=== PATIENT | male | born 1970 | race Caucasian/White ===

== ENCOUNTER 2020-01-14 18:31 | Emergency (ER) | payer BC, SELFPAY ==
--- NOTE | 2020-01-14 18:54 | ED.GENADULT ---
HPI - General Adult General Chief complaint: Skin/Abscess/Foreign Body Stated complaint: Sore in nostril Time Seen by Provider: 01/14/20 19:01 Source: patient Mode of arrival: ambulatory Limitations: no limitations History of Present Illness HPI narrative: 49-year-old male patient presents to the [facility] with complaints of a sore under the nose above the upper lip for the past 2 days. Patient is a diabetic. Patient states it is very painful to the touch. Patient denies any fevers. Patient denies any drainage from the wound. Related Data Home Medications Medication Instructions Recorded Confirmed acetaminophen-codeine tablet 01/14/20 carvedilol 01/14/20 clopidogrel 01/14/20 dulaglutide [Trulicity] mg SUBCUT 01/14/20 empagliflozin [Jardiance] mg 01/14/20 ezetimibe mg 01/14/20 fenofibrate micronized mg 01/14/20 fenofibrate micronized mg 01/14/20 flu vac [id number] 36mos up(PF) IM 01/14/20 [Afluria Qd (3yr up)(PF)] insulin glargine U-300 conc SUBCUT 01/14/20 [Toujeo SoloStar U-300 Insulin] insulin lispro [Humalog KwikPen unit SUBCUT 01/14/20 Insulin] lisinopril 01/14/20 metformin mg PO 01/14/20 pen needle, diabetic [BD 01/14/20 01/14/20 Ultra-Fine Christine Pen Needle] rosuvastatin mg 01/14/20 varicella-zoster [id number] (PF) IM 01/14/20 [Shingrix (PF)] Allergies Allergy/AdvReac Type Severity Reaction Status Date / Time No Known Allergies Allergy Verified 01/14/20 19:00 Review of Systems Review of Systems: Narrative: CONSTITUTIONAL: Denies fever, chills, or sweats. EYES: Denies visual changes, redness, or discharge. ENT: Denies rhinorrhea, congestion, sore throat, or otalgia. CARDIOVASCULAR: Denies chest pain, palpitations, or edema. RESPIRATORY: Denies cough or dyspnea. GASTROINTESTINAL: Denies abdominal pain, nausea, vomiting, or diarrhea. GENITOURINARY: Denies dysuria or hematuria. SKIN: Denies rash or itching. Positive wound to the space between the upper lip and the nose x2 days MUSCULOSKELETAL: Denies back pain, joint pain, or myalgia. NEUROLOGIC: Denies headache, numbness, or weakness. PSYCHIATRIC: Denies anxiety or depression. PMFSH Comments At the time of my signature I agree with nursing past medical history, surgical, social, and family history. There is no relevant family history pertinent to the presenting complaint. Exam Narrative: Exam Narrative: GENERAL: Well-appearing, well-nourished, and in no acute distress. HEAD: Normocephalic, atraumatic. EYES: PERRLA and EOMI. ENT: Nares clear, no rhinorrhea or epistaxis. Mucous membranes moist. NECK: Supple. No lymphadenopathy CHEST: Clear to auscultation. No respiratory distress. HEART: Regular rate and rhythm. No murmur heard. Normal peripheral pulses. ABDOMEN: Soft, nontender, nondistended, normal active bowel sounds. EXTREMITIES: Normal range of motion. No edema. SKIN: Warm, dry, no rash. Patient has what appears to be an abscess with a lot of pressure noted to the skin in between the nose and the upper lip. It is very tender to the touch and feels like it has been indurated area. NEURO: No focal deficits. Alert and oriented x3. Course Vital Signs Vital signs: Vital Signs Temperature 37.0 C 01/14/20 18:56 Pulse Rate 90 01/14/20 18:56 Respiratory Rate 16 01/14/20 18:56 Blood Pressure 157/91 H 01/14/20 18:56 Pulse Oximetry 99 01/14/20 18:56 Temperature 37.0 C 01/14/20 18:56 Pulse Rate 90 01/14/20 18:56 Respiratory Rate 16 01/14/20 18:56 Blood Pressure 157/91 H 01/14/20 18:56 Pulse Oximetry 99 01/14/20 18:56 Vital signs reviewed. The patient has been informed that they may have pre-hypertension or Hypertension based on a BP reading in the department. I recommend that the patient call the primary care provider listed on their discharge instructions or a physician of their choice this week to arrange follow up for further evaluation of possible pre-hypertension or Hyperte
[2020-01-14 18:56] VITALS: BP 157/91; PULSE 90; RESP 16; TEMP 37; O2SAT 99
== END 2020-01-14 19:32 | disposition home or self-care (01) ==
PROVIDERS: Emergency Provider Nurse Practitioner Family
DX: L02.01 Cutaneous abscess of face (principal); E11.9 Type 2 diabetes mellitus without complications; I10 Essential (primary) hypertension; Z95.1 Presence of aortocoronary bypass graft; Z95.5 Presence of coronary angioplasty implant and graft; Z79.4 Long term (current) use of insulin
CPT/HCPCS: 10060; 99213; G0463

== ENCOUNTER 2021-11-05 00:19 | Day surgery (SDC) | payer OTHER, SELFPAY ==
[2021-10-30 13:14] VITALS: BMI 34.7
[2021-11-05 08:44] VITALS: BP 124/74; PULSE 92; RESP 18; TEMP 36.3; O2SAT 99; BMI 34.0
--- NOTE | 2021-11-05 08:48 | WPDGICN ---
Assessment and Plan Assessment and plan (1) Encounter for screening colonoscopy: Code(s): Z12.11 - Encounter for screening for malignant neoplasm of colon Status: Acute Assessment and Plan: Patient presents today for screening colonoscopy. He appears to be at average risk for colon polyps. GI Consult Note Consult date/time: 11/05/21 08:48 HPI: Curtis Henry is a 51 year old male Presents for neoplasia screening. Patient's current weight appetite and bowel movements are normal. He denies abdominal pain. He has had no bleeding. His family history is noncontributory. Past medical history is significant for atherosclerotic heart disease with history of coronary artery bypass grafting and stents. Review of Systems Review of Systems: All systems reviewed & are unremarkable except as noted in HPI and below PMFSH Past Medical History Medical History (Updated 11/05/21 @ 08:49 by Sree Gaston MD) CAD (coronary artery disease) s/p CABG 2006 s/p stent 2008 Diabetes mellitus HTN (hypertension) Social History Social History (Updated 10/14/21 @ 11:43 by Andrew Howard APRN) Smoking packs per day: 1 Smoking cigarettes per day: 20.0 Years smoked: 13 Smoking pack-years: 13.00 Smoking status: Former smoker Tobacco type: cigarettes Smoking end date: 09/21/97 Alcohol intake: current Alcohol use details: 1 drink/month Substance use: never Substance use type: does not use Living arrangements: with family 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 Spiritual care concerns: No Meds Home Medications and Allergies Home Medications Medication Instructions Recorded Confirmed Type carvedilol 12.5 mg PO DAILY 01/14/20 10/30/21 History clopidogrel 75 mg PO DAILY 01/14/20 10/30/21 History dulaglutide [Trulicity] 1.5 mg SUBCUT WEEKLY 01/14/20 10/30/21 History empagliflozin [Jardiance] 25 mg PO DAILY 01/14/20 10/30/21 History ezetimibe 10 mg PO DAILY 01/14/20 10/30/21 History fenofibrate micronized 134 mg PO DAILY 01/14/20 10/30/21 History insulin glargine U-300 conc SUBCUT 01/14/20 10/14/21 History [[place] SoloStar U-300 Insulin] insulin lispro [Humalog KwikPen unit SUBCUT 01/14/20 10/14/21 History Insulin] lisinopril 5 mg PO DAILY 01/14/20 10/30/21 History metformin 500 mg PO BID 01/14/20 10/30/21 History pen needle, diabetic [BD 01/14/20 10/14/21 History Ultra-Fine Christine Pen Needle] rosuvastatin 40 mg PO DAILY 01/14/20 10/30/21 History aspirin 81 mg tablet,delayed 81 mg PO DAILY 10/14/21 10/30/21 History release cholecalciferol (vitamin D3) 25 25 mcg PO DAILY 10/14/21 10/30/21 History mcg (1,000 unit) capsule Allergies Allergy/AdvReac Type Severity Reaction Status Date / Time No Known Allergies Allergy Verified 11/05/21 08:42 Vital Signs Vital Signs - 24 hr 11/05/21 08:44 Temperature 97.4 F L Pulse Rate 92 Respiratory Rate 18 Blood Pressure 124/74 Pulse Oximetry 99 Exam Narrative: Physical exam reveals patient to be alert. Vital signs stable. HEENT exam is unremarkable. Patient is anicteric. Lungs are clear to auscultation and percussion. Heart is without murmur or extra sounds. Abdominal exam bowel sounds are present soft nontender with no organomegaly. Digital external rectal exam is normal.
[2021-11-05] MEDS: LACTATED RINGERS 1,000 ML 150 ML IV CONT (08:58)
--- NOTE | 2021-11-05 09:15 | WPDANESEPPF ---
Anes - Initial Pre Proc Eval Procedure: Operation Date: 11/05/21 10:00 Proposed Procedures p Screening Colonoscopy - Sree Gaston MD Date/Time: 11/05/21 09:15 Surgeon: Sree Gaston MD Pre Op Diagnosis: neoplasm screening Patient Data Age: 51 Gender: M Height: 1.78 m Weight: 107.7 kg Last Vital Signs Temp 97.4 F L 11/05/21 08:44 Pulse 92 11/05/21 08:44 Resp 18 11/05/21 08:44 BP 124/74 11/05/21 08:44 Pulse Ox 99 11/05/21 08:44 Allergies Allergy/AdvReac Type Severity Reaction Status Date / Time No Known Allergies Allergy Verified 11/05/21 08:42 Home Medications Medication Instructions Recorded Confirmed Type carvedilol 12.5 mg PO DAILY 01/14/20 10/30/21 History clopidogrel 75 mg PO DAILY 01/14/20 10/30/21 History dulaglutide [Trulicity] 1.5 mg SUBCUT WEEKLY 01/14/20 10/30/21 History empagliflozin [Jardiance] 25 mg PO DAILY 01/14/20 10/30/21 History ezetimibe 10 mg PO DAILY 01/14/20 10/30/21 History fenofibrate micronized 134 mg PO DAILY 01/14/20 10/30/21 History insulin glargine U-300 conc SUBCUT 01/14/20 10/14/21 History [Toujeo SoloStar U-300 Insulin] insulin lispro [Humalog KwikPen unit SUBCUT 01/14/20 10/14/21 History Insulin] lisinopril 5 mg PO DAILY 01/14/20 10/30/21 History metformin 500 mg PO BID 01/14/20 10/30/21 History pen needle, diabetic [BD 01/14/20 10/14/21 History Ultra-Fine Christine Pen Needle] rosuvastatin 40 mg PO DAILY 01/14/20 10/30/21 History aspirin 81 mg tablet,delayed 81 mg PO DAILY 10/14/21 10/30/21 History release cholecalciferol (vitamin D3) 25 25 mcg PO DAILY 10/14/21 10/30/21 History mcg (1,000 unit) capsule Patient hx anesthesia problems: none Family hx anesthesia problems: none Results Review: All pre-operative results and documents have been reviewed as part of the pre-operative evaluation. [facility] Past Medical History Medical History (Updated 11/05/21 @ 08:49 by Sree Gaston MD) CAD (coronary artery disease) s/p CABG 2006 s/p stent 2008 Diabetes mellitus HTN (hypertension) Social History Social History (Updated 10/14/21 @ 11:43 by Andrew Howard, ISMA) Smoking packs per day: 1 Smoking cigarettes per day: 20.0 Years smoked: 13 Smoking pack-years: 13.00 Smoking status: Former smoker Tobacco type: cigarettes Smoking end date: 09/21/97 Alcohol intake: current Alcohol use details: 1 drink/month Substance use: never Substance use type: does not use Living arrangements: with family 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 Informed Consent: The patient's anesthetic plan and its attendant risks and benefits were discussed with the patient/family/POA. Questions were solicited and answers provided to the satisfaction of the patient/family/POA.
[2021-11-05 09:35] LABS: Glucose Point of Care 189 mg/dl (65-105)
[2021-11-05 10:10] VITALS: BP 105/69; PULSE 79; RESP 17; O2SAT 97
--- NOTE | 2021-11-05 10:18 | SUR.PHASEII ---
RESTART PLAVIX 11/[address] COOPER ORDERS. DOCUMENTATION GIVEN TO PATIENT, PATIENT AWARE.
[2021-11-05 10:20] VITALS: BP 109/73; PULSE 83; RESP 24; O2SAT 98
[2021-11-05 10:27] LABS: Glucose Point of Care 149 mg/dl (65-105)
[2021-11-05 10:30] VITALS: BP 123/85; PULSE 77; RESP 26; O2SAT 100
--- NOTE | 2021-11-08 10:21 | SUR.OPER ---
Specimen order for ascending colon polyp was incorrect. Documentation changed to descending colon polyp.
== END 2021-11-05 10:35 | disposition home or self-care (01) ==
PROVIDERS: PCP Internal Medicine; Visit Provider Internal Medicine Gastroenterology
PROC: 0DJD8ZZ Inspection of Lower Intestinal Tract, Via Natural or Artificial Opening Endoscopic (ICD-10-PCS; CPT 45378; principal; 2021-11-05 10:00)
DX: Z12.11 Encounter for screening for malignant neoplasm of colon (principal); D12.4 Benign neoplasm of descending colon; Z79.82 Long term (current) use of aspirin; Z79.4 Long term (current) use of insulin; Z79.51 Long term (current) use of inhaled steroids; I25.10 Atherosclerotic heart disease of native coronary artery without angina pectoris; Z95.1 Presence of aortocoronary bypass graft; E11.9 Type 2 diabetes mellitus without complications; I10 Essential (primary) hypertension; Z87.891 Personal history of nicotine dependence; E66.9 Obesity, unspecified; Z68.34 Body mass index [BMI] 34.0-34.9, adult
CPT/HCPCS: 45385; 82948; 88305; J2704; J7120

== ENCOUNTER 2024-11-04 13:19 | Outpatient (CLI) | payer BC, SELFPAY ==
--- NOTE | ~2024-11-04 | US_ITS ---
EXAMINATION: US carotid duplex BI DATE: 11/04/2024 13:39 INDICATION: Carotid artery stenosis. TECHNIQUE: Grayscale, color Doppler, and pulsed Doppler images of the cervical carotid arteries were obtained. The degree of vessel stenosis is placed in one of the following categories: normal, <50%, 5 0-69%, >=70% but less than near-occlusion, near-occlusion, or total occlusion. Note that percent sten osis relative to normal distal artery lumen diameter is indirectly measured from velocity measurement s as described by Mukesh, et al. Radiology 2003; 229:[id number]. COMPARISON: None. FINDINGS: RIGHT: The right common carotid artery (CCA) peak systolic velocity (PSV) is 93 cm/s. The right internal car otid artery (ICA) PSV is 57 cm/s. The right ICA end-diastolic velocity (EDV) is 19 cm/s. The right IC A/CCA PSV ratio is 0.6. Grayscale and color Doppler images yield an estimate of <50% diameter reducti on from plaque in the ICA. There is antegrade flow in the right vertebral artery. LEFT: The left CCA PSV is 104 cm/s. The left ICA PSV is 59 cm/s. The left ICA EDV is 20 cm/s. The left ICA/ CCA PSV ratio is 0.6. Grayscale and color Doppler images yield an estimate of <50% diameter reduction from plaque in the ICA. There is antegrade flow in the left vertebral artery. IMPRESSION: 1. <50% stenosis in the right internal carotid artery. 2. <50% stenosis in the left internal carotid artery. Reviewed, dictated and finalized at location A. ENING NURSE
== END 2024-11-04 13:20 | disposition home or self-care (01) ==
LOC: GOSHIMG 13:21
PROVIDERS: PCP Internal Medicine; Visit Provider Internal Medicine
DX: I65.23 Occlusion and stenosis of bilateral carotid arteries (principal)
CPT/HCPCS: 93880

== ENCOUNTER 2025-07-12 08:09 | Outpatient (CLI) | payer OTHER, BC, SELFPAY ==
--- NOTE | ~2025-07-12 | US_ITS ---
US abdomen limited INDICATION: Fatty liver PROCEDURE: Realtime right upper abdominal ultrasound. COMPARISON: No prior studies for comparison. FINDINGS: The pancreas is normal without focal mass or pancreatic ductal dilation. Liver echotexture is increased, consistent with fatty infiltration. Liver is enlarged measuring 19 cm. There is a gallstone at the gallbladder neck. No gallbladder wall thickening or pericholecystic fluid. The gallbladder is normal without stones, gallbladder wall thickening or pericholecystic fluid. Common bile duct measures 5 mm. No sonographic Martínez's sign. IMPRESSION: 1: Cholelithiasis. 2: Hepatomegaly with fatty infiltration of the liver. Reviewed, dictated and finalized at location O.
== END 2025-07-12 08:10 | disposition home or self-care (01) ==
PROVIDERS: PCP Internal Medicine; Visit Provider Internal Medicine
DX: K76.0 Fatty (change of) liver, not elsewhere classified (principal); K80.20 Calculus of gallbladder without cholecystitis without obstruction
CPT/HCPCS: 76705